=== PATIENT | male | born 1985 | race Caucasian/White ===

== ENCOUNTER 2023-11-11 06:26 | Inpatient (IN) | payer OTHER, SELFPAY ==
[2023-11-11] VITALS (21 sets, daily range): BP systolic 92–126; BP diastolic 53–78; BMI 24.6; BMI 24.7
[2023-11-11] MEDS: HALDOL 10 MG IM (04:30)
[2023-11-11] MEDS: ATIVAN 4 MG IM (04:30)
[2023-11-11] MEDS: ATIVAN 4 MG IV (04:41)
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
[2023-11-11] MEDS: NSS 1000 IV ×4 (04:52→23:54)
[2023-11-11 05:02] LABS: % Basophils 0.3 % (0-2); % Eosinophils 0.4 % (0-6); % Immature Granulocytes 0.2 % (0-0.5); % Lymphocytes 20.3 % (20.5-51.1); % Monocytes 8.9 % (1.7-9.3); % Neutrophils 69.9 % (42.2-75.2); Absolute Eosinophils 0.1 10^3/uL (0-0.7); Absolute Lymphocytes 2.5 10^3/uL (1.2-3.4); Absolute Monocytes 1.1 10^3/uL (0.1-0.6); Absolute Neutrophils 8.7 10^3/uL (1.4-6.5); Hematocrit 38.5 % (39.0-52.0); Hemoglobin 13.7 g/dL (13.0-18.0); Mean Corp Hgb Conc. 35.6 g/dL (33.0-37.0); Mean Corpuscular Hgb 32.9 pg (27.0-31.0); Mean Corpuscular Volume 92.5 fL (80.0-94.0); Mean Platelet Volume 9.3 fL (7.4-10.4); Nucleated Red Blood Cells % 0 % (-); Platelet Count 277 10^3/uL (130-400); Red Blood Cell Count 4.16 10^6/uL (4.70-6.10); Red Cell Dist. Width 12.7 % (11.5-14.5); White Blood Cell Count 12.5 10^3/uL (4.8-10.8)
[2023-11-11 05:24] LABS: ALT (SGPT) 26 U/L (0-50); AST (SGOT) 27 U/L (17-59); Acetaminophen < 10 ug/ml (10-30); Albumin 5.1 g/dl (3.5-5.0); Alkaline Phosphatase 81 U/L (38-126); Blood Urea Nitrogen 17 mg/dl (9-20); Carbon Dioxide 28 mmol/L (22-30); Chloride 103 mmol/L (98-107); Creatine Phosphokinase 197 U/L (55-170); Estimated Creatinine Clearance 102 ml/min; Glucose 73 mg/dl (70-99); Salicylate < 1.0 mg/dl (2.0-20.0); Sodium 144 mmol/L (135-145); Total Bilirubin 1.3 mg/dl (0.2-1.3); Total Protein 7.9 g/dl (6.3-8.2); eGFR > 60.00
[2023-11-11 05:26] LABS: Alcohol None Detected; Depakane < 10.0 ug/ml (50.0-120.0)
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
[2023-11-11 06:30] LABS: Amphetamines Positive (Negative); Barbiturates Negative (Negative); Benzodiazepines Positive (Negative); Buprenorphine Negative (Negative); Cocaine Positive (Negative); Methamphetamines Positive (Negative)
[2023-11-11 06:31] LABS: Marijuana Negative (Negative); Methadone Negative (Negative); Opiates Negative (Negative); Phencyclidine Negative (Negative); Tricyclic Antidepressants Negative (Negative)
[2023-11-11 06:39] LABS: Fentanyl, Urine Negative (Negative)
--- NOTE | 2023-11-11 08:09 | W.PN.HOSP.TC ---
Today's Communication/Plan
-
start precedex
PRN ativan
await psych/cash reconciliation specialist
cont 1:1/restraints
Assessment / Plan
Assessment / Plan
pt is a 38 year old male
Agitated toxic encephalopathy due to methamphetamine and ecstasy use/abuse--received ativan, haldol in ED--cont 1:1 and 4 point restraints--await cash reconciliation specialist/psych--start pecedex and cont PRN ativan--(Per ER: witness/friend-Connor Rosales
[phone]-patient possibly using methamphetamine and ecstasy and Currently in a opioid recovery program)--tox screen positive for amphetamines/methamphetamines/benzos/cocaine
depression/anxiety--await psych
bipolar -- await psych
DVT proph
code status -- FULL code
Total Critical Care Time 32 minutes. I was immediately available to the patient and staff. I personally examined, reviewed labs, diagnostic images/reports, interpretations, treatment plans, discussed patient care with other providers and family
or caregivers (if patient is unable to make decisions), entered orders as appropriate and documented the medical record.
Anticipated Discharge: > 48 hours
Subjective/Interval History
-
Date of Service: November 11, 2023
pt snoring--saturating well on room air
Objective Data
-
Labs:
Laboratory Results
11/11/23 11/11/23
04:48 07:46
WBC 12.5 H
Hgb 13.7
Hct 38.5 L
Plt Count 277
PT Pending
INR Pending
APTT Pending
Sodium 144
Potassium 4.0
Chloride 103
Carbon Dioxide 28
BUN 17
Creatinine 1.0
Glucose 73
Calcium 10.0
Total Bilirubin 1.3
AST 27
ALT 26
Alkaline Phosphatase 81
Vital Signs:
max temp for 24 hours
11/11/23
05:11
Temp 98.9 F
Vital Signs
Temp Pulse Resp BP Pulse Ox
97.4 F 64 14 113/73 100
11/11/23 08:06 11/11/23 08:00 11/11/23 08:00 11/11/23 07:30 11/11/23 08:00
Review of Systems
-
Unable to obtain full review of systems at this time due to: Acuity (pt snoring from meds received in ED)
Physical Exam
-
General: Well Developed, Well Nourished and No Apparent Distress
HEENT: Normocephalic and Atraumatic
Respiratory: Clear to Auscultation; Negative Wheezes or Rhonchi
Cardiac: Regular Rhythm and S1/S2; Negative Murmur
GI: Soft, Nontender, Nondistended and Normal Bowel Sounds
Genito-urinary: Other (condom cath in place)
Musculoskeletal: No Clubbing, No Cyanosis and No Edema
Skin: Other (multiple tattoos)
Neuro: Awake and Alert
Psych: Calm
--- NOTE | 2023-11-11 08:10 | PTCARENOTE ---
patient received from ED with security staff, somnolent until moving patient from stretcher to bed, awake and yelling, fighting staff. [address] restraints in [address]. unable to follow any instructions. back to sleeping when not stimulated.
monitor nsr, lungs with scattered coarse breath sounds. respiratory rate 14-20 on room air. abdomen soft. condom cath placed. bladder scan per work list. 1:1 observation maintained. safe environment maintained
[2023-11-11 08:42] LABS: APTT 26.9 Sec (23.4-35.0); INR 1.16; PT 14.8 Sec (11.4-14.6)
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
--- NOTE | 2023-11-11 12:58 | PTCARENOTE ---
Addendum entered by Irish Malave RN 11/11/23 14:07:
patient without violent outbursts. able to redirect. hosptialsit updated. orders received.
Original Note:
patient reassessed, bladder scan as noted. patient able to state name, oriented to self only. sleeping unless disturbed, agitated during straight cath, but sleeping again once procedure completed. restraints maintained for patient safety
--- NOTE | 2023-11-11 16:09 | PTCARENOTE ---
patient reassessed. oriented to person, 'hospital' after reorientation by staff. remains drowsy,sleeping unless disturbed. denies need to void. restraints and bed alarm to maintain patient safety
--- NOTE | 2023-11-11 16:34 | PTCARENOTE ---
patient mother in to visit. she verbalized that patient has been struggling with addiction for 15 years. he was gone on a 'binge' for 4-5 days. she states she cannot have him return to her home, he is currently on parole. also residing in her home
is patient girlfriend and infant child. this information was relayed by tiger text to hospitalist and psych.
[2023-11-11] MEDS: LOVENOX 40 MG SC (17:22)
--- NOTE | 2023-11-11 22:00 | PTCARENOTE ---
Assumed care of pt at 1900. Received pt in 4 point soft restraints, pt asleep and calm. Pt awakes easily to name or light tactile stimuli. Cooperative with care and able to follow simple commands. Able to state name and birthday, knew the year, knew
it was summer but not what month it was and did not know where he was. Pt reoriented to time and place but he fell back asleep. SR 60s/SB 50s on monitor, BPs in 90s but maintaining MAP >65. SpO2 95-100% on RA. Pt's mother, Madina, called, update
given/questions answered. See nursing shift assessment flowsheet for full physical assessment details. Bed alarm activated.
[2023-11-12] VITALS (13 sets, daily range): BP systolic 90–113; BP diastolic 58–71; PULSE 74–86; BMI 24.9
--- NOTE | 2023-11-12 00:28 | PTCARENOTE ---
Physical assessment unchanged. Pt bladder scanned at around 2330, result was >540 mL. Pt attempted to urinate but was unable to do so. Straight cath done, 575mL moo urine drained. Pt screaming in pain during the procedure but was not taking
frustration out on staff. Pt now oriented to person/place/time but does not remember what happened leading up to him being in the hospital. Explained to patient why he had been in restraints. Since pt has been calm, cooperative, and polite,
restraints were removed at approx 2350. Pt took sips of water without any issue. Pt is now resting with eyes closed, bed alarm remains activated.
--- NOTE | 2023-11-12 04:14 | PTCARENOTE ---
Assessment unchanged. SR 60s/SB 50s on monitor. Remains calm, out of restraints. Has been sleeping the majority of the shift.
[2023-11-12 05:15] LABS: Hematocrit 33.5 % (39.0-52.0); Hemoglobin 12.1 g/dL (13.0-18.0); Mean Corp Hgb Conc. 36.1 g/dL (33.0-37.0); Mean Corpuscular Hgb 32.9 pg (27.0-31.0); Mean Platelet Volume 9.1 fL (7.4-10.4); Platelet Count 191 10^3/uL (130-400); Red Blood Cell Count 3.68 10^6/uL (4.70-6.10); Red Cell Dist. Width 12.9 % (11.5-14.5); White Blood Cell Count 6.5 10^3/uL (4.8-10.8)
[2023-11-12 05:30] LABS: Blood Urea Nitrogen 15 mg/dl (9-20); Calcium 8.8 mg/dl (8.4-10.2); Carbon Dioxide 18 mmol/L (22-30); Chloride 111 mmol/L (98-107); Creatine Phosphokinase 473 U/L (55-170); Estimated Creatinine Clearance > 125 ml/min; Glucose 68 mg/dl (70-99); Sodium 138 mmol/L (135-145); eGFR > 60.00
[2023-11-12 07:10] LABS: Glucose - Point of Care 74 mg/dl (70-99)
[2023-11-12] MEDS: NSS 1000 IV (07:43)
--- NOTE | 2023-11-12 07:51 | W.PN.HOSP.TC ---
Today's Communication/Plan
-
transfer to tele
PT/OT/speech
d/c planning
Assessment / Plan
Assessment / Plan
pt is a 38 year old male
Agitated toxic encephalopathy due to methamphetamine and ecstasy use/abuse--received ativan, haldol in ED--off 1:1 and 4 point restraints--apprec vp production/psych--s/p pecedex and cont PRN ativan--(Per ER: witness/friend-Connor Rosales
[phone]-patient possibly using methamphetamine and ecstasy and Currently in a opioid recovery program)--tox screen positive for amphetamines/methamphetamines/benzos/cocaine
depression/anxiety--apprec psych
bipolar -- apprec psych
DVT proph
code status -- FULL code
transfer to tele
Anticipated Discharge: 24 - 48 hours
Subjective/Interval History
-
Date of Service: November 12, 2023
pt awake and calm--denies issues--hungry
Objective Data
-
Labs:
Laboratory Results
11/12/23
04:57
WBC 6.5
Hgb 12.1 L
Hct 33.5 L
Plt Count 191 D
Sodium 138
Potassium 4.0
Chloride 111 H
Carbon Dioxide 18 L
BUN 15
Creatinine 0.7
Glucose 68 L
Calcium 8.8
Vital Signs:
max temp for 24 hours
11/11/23
15:43
Temp 98.2 F
Vital Signs
Temp Pulse Resp BP Pulse Ox
97.8 F 76 16 113/67 97
11/12/23 07:07 11/12/23 06:00 11/12/23 06:00 11/12/23 06:00 11/12/23 06:00
I&O
11/11/23 11/12/23 11/13/23
06:59 06:59 06:59
Intake Total 2760 / 2760
Output Total 5 / 5
Balance 1684 / 168
Review of Systems
-
All other systems: Reviewed and negative
Physical Exam
-
General: Well Developed, Well Nourished and No Apparent Distress
HEENT: Normocephalic and Atraumatic
Respiratory: Clear to Auscultation; Negative Wheezes or Rhonchi
Cardiac: Regular Rhythm and S1/S2; Negative Murmur
GI: Soft, Nontender, Nondistended and Normal Bowel Sounds
Musculoskeletal: No Clubbing, No Cyanosis and No Edema
Skin: Other (multiple tattoos)
Neuro: Awake and Alert
Psych: Calm
--- NOTE | 2023-11-12 08:39 | W.PN.INTV ---
Today's Communication / Plan
Recommendations
Continue to monitor
Advance diet
Discontinue IV
transferred to telemetry
Sign off
Assessment
-
Toxic metabolic encephalopathy/delirium
UDS positive with methamphetamines and cocaine
Conditions present prior admissions per records:
Bipolar disorder
Depression
Anxiety
Chronic back pain
Migraines
Smoker
Assessment and plan:
Clinical picture consistent with delirium from meth/ecstasy/possibly cocaine as well.
Delirium has resolved. Calm uncooperative. Neurologically intact.
Advance diet
Increase activity as able
Ativan as needed
Precedex discontinued
Discontinue IV fluids
Continue with aspiration precautions
-
Patient has been transferred to telemetry.
Critical care team will sign off. Please call pulmonary if any respiratory issues arise.
Patient is currently 302
DVT prophylaxis with Lovenox
-
Subjective Dataa
Subjective Data
Date of Service:
Date of Service: November 12, 2023
Chief Complaint: Packaging Supervisor Follow Up (Toxic metabolic encephalopathy-delirium)
Subjective:
This morning patient is calm, cooperative.
Denies any complaints
Objective Data
Data Reviewed
Vital Signs / I&O / Oxygen:
Vital Signs
Temp Pulse Resp BP Pulse Ox
97.8 F 76 16 113/67 97
11/12/23 07:07 11/12/23 06:00 11/12/23 06:00 11/12/23 06:00 11/12/23 06:00
Intake and Output
11/11/23 11/12/23 11/13/23
06:59 06:59 06:59
Intake Total 2760 / 2760
Output Total 1075 / 1075
Balance 1685 / 1685
SaO2 97
Physical Exam
General: Comfortable
HEENT: Normocephalic
Cardiovascular: S1-S2 and Regular Rhythm
Respiratory: Clear and Non-Labored Respirations
GI: Soft and Non Distended
Neurology: AO x 3 and No Motor Deficits
Skin: Warm
Labs/Micro/Reports
Lab Data
11/12/23 04:57
11/12/23 04:57
Laboratory Results
11/11/23
07:46
PT 14.8 H
INR 1.16
APTT 26.9
--- NOTE | 2023-11-12 09:30 | PTCARENOTE ---
Received pt @ change of shift, assessment per charting- see flow sheet. Pt. drowsy, awakens to verbal stimuli, forgetful to time, reoriented. Pt. stand by assisted into BR this AM by PT/OT, voided 400mL, no post void residual. Stand by assisted
into chair, chair alarm active. Tolerating breakfast. Instructed on how to report care concerns and call whyte in reach.
--- NOTE | 2023-11-12 11:19 | W.PN.UPDATE ---
Update Note
Progress Note Update
Pt seen, sitting up in chair, alert, calm, cooperative. Pt oriented, making appropriate eye contact, with stable affect. He denies any mood disturbance, denies suicidal or homicidal ideation. Pt shows no overt signs of psychosis, no signs of med
side effects. Pt out of restraints without incident. Pt states he wants to be discharged, to return home, states he attends a therapy group, denies being in treatment for substance use. Pt denies being on any prescribed medications. 302 was
filled out on admission, but never completed- part 6 physician exam not completed in the 2-hour window early in the am 11/11/23.
Imp: Poly substance use, including meth and cocaine, agitation and delirium appear to be resolved
Unclear hx of Bipolar d/o, mood/affect appears stable. Pt states he has outpatient therapy, is not on medications
Rec: Psychiatrically stable for discharge to outpatient therapy when medically cleared. Pt is not on a 302.
--- NOTE | 2023-11-12 11:24 | PTOTSP ---
Speech Therapy
Presentation: Patient's speech and language appeared to be WNL during conversation. Patient's speech was short in length but adequate communicative abilities presented.
Swallowing function: RN RADIOLOGY observed patient with several bites of puree and regular solids in addition to several sips of thin liquids in which patient appeared to tolerate as he did not exhibit any overt clinical s/sx of aspiration or difficulty with
mastication/ manipulation. Patient denied dysphagia complaints.
RN RADIOLOGY assisted patient with ordering breakfast with the use of the room's phone.
Recommendations:
1) Regular consistency solids and thin liquids
2) Aspiration precautions
3) Medications as tolerated
Plan: RN RADIOLOGY will sign off at this time as patient appeared to be at his baseline function. Please re-consult if clinically indicated.
--- NOTE | 2023-11-12 11:31 | W.DCSUMMARY ---
Addendum entered and electronically signed by Chitra Gomez MD 11/12/23 19:35:
error: Should read ' tearing up an apartment' at [facility]
Original Note:
Discharge Summary
Discharge Data
Date of Admission: 11/11/23
Date of Discharge: 11/12/23
-
Pending Results: No
Hospital Course
Primary care physician : None
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
Chronic Discharge diagnosis : Depression/anxiety, bipolar disorder
Hospital Course : Patient was a 38-year-old male with a history of bipolar disorder and depression/anxiety who was brought in by police after he was found 'tearing up an apartment' according the schaffer. Patient was agitated with abrasive language,
spitting, and being uncooperative. Patient was given three 4mg doses of IV lorazepam and 10 mg of Haldol in the emergency department. Patient was admitted.
Problem #1: Agitated toxic encephalopathy due to drug use. Patient was admitted to the intensive care unit. Urine toxicology screen showed positivity for amphetamines, methamphetamines, benzodiazepines, and cocaine. Acetaminophen and salicylates
were negative. Valproic acid was negative. Alcohol was negative. Patient required 4 point restraints and was admitted to the intensive care unit as mentioned. He was started on IV Precedex which was able to be weaned off. Patient was seen in
consultation by psychiatry. Apparently a 302 petition was instituted but never completed within the 2-hour window. Patient is now calm, off all sedating medications and was cleared for discharge by psychiatry.
Problem #2: All other medical issues. These include Depression/anxiety, bipolar disorder. Medications for these problems were held during this admission.
Patient had urinary retention and needed to be straight cath to empty his bladder. In addition, his bicarbonate went from 28 to 18 and his CPK went from 197 to 473. I did explain to the patient that because his lab values are not normal, he runs
the risk of having kidney and/or liver failure as well as the possibility of . He understands these risks and wishes to sign out AGAINST MEDICAL ADVICE. Paperwork has been signed by the patient.
Patient is leaving AGAINST MEDICAL ADVICE.
Time for discharge 38 minutes.
Discharge Plan
-
Patient Disposition: Against Medical Advice
Discharge Diagnosis/Procedures: agitated toxic encephalopathy due to drug use, depression/anxiety, bipolar
Condition: Fair
Diet: As tolerated
Activity: As tolerated
Driving Restrictions: As prior to admission
Bathing Restrictions: None
Activity Restrictions/Additional Instructions:
NO DRUG USE--get yourself help
Referrals:
UNKNOWN - PT NOT,INTERVIEWE [Family Provider] - in less than 1 week
Prescriptions:
Held
Depakote:
Hold Instructions: cannot confirm you are taking so talk to your doctor
Patient Comments:
Pt does not know dose.
metaxalone [Skelaxin] 800 MG tablet
800 mg PO TIDPRN PRN (Reason: muscle spasms) Qty: 12 0RF
Hold Instructions: cannot conform you are taking so talk to your doctor
ondansetron 4 MG tablet,disintegrating
4 mg PO TIDPRN PRN (Reason: nausea) Qty: 20 0RF
Hold Instructions: cannot confirm you are taking so talk to your doctor
clonidine HCl 0.2 MG tablet
0.2 mg PO BID Qty: 20 0RF
Hold Instructions: cannot confirm you are taking so talk to your doctor
doxycycline hyclate 100 MG capsule
100 mg PO BID Qty: 28 0RF
Hold Instructions: cannot confirm you are taking so talk to your doctor
famciclovir 500 MG tablet
500 mg PO TID Qty: 30 0RF
Hold Instructions: cannot confirm you are taking so talk to your doctor
Discharge Orders:
Discharge Patient (As Directed); Ordered 11/12/23
Ordered By: Chitra Gomez
Discharge Date and Time
Discharge Date/Time: 11/12/23 11:30
Print Language: [place]
--- NOTE | 2023-11-12 11:35 | PTCARENOTE ---
Pt. reported he did not want to stay in hospital any longer. Dr. Gomez and Dr. Lewis (psych) notified. Both MDs to bedside; no [address] Gomez discussed risks/consequences of leaving AMA. Pt signed AMA paper work. Peripheral
IVs removed and pt. left AMA.
--- NOTE | 2023-11-12 11:35 | CM ---
CM following re: d/c planning.
Pt presents to with agitation after methamphetamine and ecstasy use.
Psych on board.
No [address]
CM attempted to see pt, he left AMA quickly after being cleared by psych.
Pt plans to follow up with his outpatient program.
CM discussed with nursing, no d/c needs noted.
Pt anxious to leave and return home.
Goal: home, no needs, follow up with current program.
--- NOTE | 2023-11-12 14:22 | CHAP ---
Visited Mr. Wells at 10:40 - he was sitting in chair and welcomed me politely. Said everything was fine and he was 'getting ready to go.' Emotional support provided.
== END 2023-11-12 11:30 | disposition left against medical advice (07) | DRG 93 ==
LOC: ICU 06:26
PROVIDERS: ADMITTING PHYSICIAN Internal Medicine; ATTENDING PHYSICIAN Internal Medicine; CONSULT PHYSICIAN Internal Medicine Critical Care Medicine; CONSULT PHYSICIAN Psychiatry & Neurology Psychiatry; EMERGENCY PHYSICIAN Emergency Medicine
DX: G92.8 Other toxic encephalopathy (principal); F15.188 Other stimulant abuse with other stimulant-induced disorder; F14.129 Cocaine abuse with intoxication, unspecified; F31.9 Bipolar disorder, unspecified; F41.9 Anxiety disorder, unspecified; R33.9 Retention of urine, unspecified; M54.9 Dorsalgia, unspecified; G89.29 Other chronic pain; F17.210 Nicotine dependence, cigarettes, uncomplicated; Z78.1 Physical restraint status
CPT/HCPCS: 51701; 70450; 71045; 80048; 80053; 80143; 80164; 80179; 80306; 80307; 82077; 82550; 82962; 85025; 85027; 85610; 85730; 87070; 87147; 92610; 93005; 96361; 96372; 96374; 97161; 97166; 99291